=== PATIENT | female | born 1990 | race Caucasian/White ===

== ENCOUNTER 2018-02-20 08:21 | Emergency (ER) | payer SELFPAY ==
[2018-02-20 08:39] VITALS: BP 123/75; PULSE 94; TEMP 98.5; BMI 35.4
--- NOTE | 2018-02-20 08:42 | PDOC ---
History of Present Illness - General Chief Complaint: Edema Stated Complaint: SWELLING AND DRAINAGE FROM UMBILICUS Time Seen by Provider: 02/20/18 08:27 - History of Present Illness Initial Comments: 02/20/18 08:43 Chief complaint: Infection belly button History of present illness: Patient noted pain and swelling in the area of her umbilicus approximately one week ago. This persisted until yesterday, when a "lump" that he developed ruptured and a large amount of pus was released. The pain was resolved and the drainage has continued. Review of systems: No fever/chills, pain in other areas of the abdomen, chest pain, shortness of breath, nausea, vomiting, diarrhea, visual or focal neurologic symptoms, unsteadiness of gait, urinary tract symptoms, vaginal bleeding or discharge Past medical history: Patient denies diabetes or other chronic illnesses. Healthy. Taking no medications Social/family history reviewed and noncontributory other than moderate obesity Physical exam: Alert and oriented well-developed well-nourished no acute distress cheerful and cooperative Afebrile, vital signs normal HEENT clear Neck supple without bruit mass or nodes Chest clear CV regular without murmur rub or gallop Abdomen nondistended. Bowel sounds normal. Soft without mass tenderness organomegaly. No CVAT. There is minimal erythema, less than 1 cm, in the umbilical area, mostly superior. There is a small amount of watery but purulent appearing fluid draining from a and opening superiorly. There is no significant surrounding swelling, induration, or tenderness. There is no foreign body or other material within. Impression: Small abscess, superficial, open and draining, no systemic toxicity Plan: Continue local wound care, warm compresses, begin antibiotics, close follow-up if symptoms worsen or infection stops draining and continues to spread. Past History - Past Medical History Allergies/Adverse Reactions: Allergies Allergy/AdvReac Type Severity Reaction Status Date / Time No Known Allergies Allergy Verified 02/20/18 08:25 Home Medications: Ambulatory Orders Sulfamethoxazole/Trimethoprim [Bactrim Ds -] 1 tab PO BID #14 tablet 02/20/18 Cardiac Disorders: Yes (INFANCY) COPD: No - Surgical History Abdominal Surgery: Yes (appy) Appendectomy: Yes - Immunization History Td Vaccination: Yes TDAP Vaccination: No Immunization Up to Date: Yes - Suicide/Smoking/Psychosocial Hx Smoking Status: No Smoking History: Former smoker Have you smoked in the past 12 months: No Number of Cigarettes Smoked Daily: 0 If you are a former smoker, when did you quit?: 5 YEARS Information on smoking cessation initiated: No Hx Alcohol Use: Yes (SOCIAL) Drug/Substance Use Hx: No Substance Use Type: Alcohol *Physical Exam - Vital Signs Last Vital Signs Temp Pulse Resp BP Pulse Ox 98.5 F 94 H 16 123/75 100 02/20/18 08:24 02/20/18 08:24 02/20/18 08:24 02/20/18 08:24 02/20/18 08:24 *DC/Admit/Observation/Transfer Diagnosis at time of Disposition: Omphalitis in adult - Discharge Dispostion Disposition: HOME Condition at time of disposition: Stable Decision to Admit order: No - Prescriptions Prescriptions: Sulfamethoxazole/Trimethoprim [Bactrim Ds -] 1 tab PO BID #14 tablet - Referrals - Patient Instructions Printed Discharge Instructions: DI for Wound Infection Additional Instructions: Continue warm compresses. Local skin hygiene as directed. Antibiotics. If no improvement or if the symptoms persist after antibiotic therapy, surgical consultation may be necessary. If there is fever, increased pain, or spread of the redness or inflammation and surrounding tissues, return to ER immediately or see primary physician. - Post Discharge Activity
== END 2018-02-20 08:52 | disposition home or self-care (01) ==
LOC: FER 08:21
DX: L08.82 Omphalitis not of newborn (principal); Z87.891 Personal history of nicotine dependence; I51.9 Heart disease, unspecified
CPT/HCPCS: 99282-25

== ENCOUNTER 2019-11-22 13:07 | Emergency (ER) | payer OTHER ==
[2019-11-22 13:23] VITALS: BP 128/73; TEMP 98.8; BMI 38.9
--- NOTE | 2019-11-22 13:33 | PDOC ---
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 Notes that it began this morning after waking up, from approximately 0500 until now. "Can't get a full breath of air". Reports that she has had previously felt similar symptoms, but never had them for so long. Initially stated that she was not feeling anxious, but later in the interview states that she is feeling worsening anxiety. Does not follow anyone for anxiety, does not take any medications. Patient declines labs or imaging, but is amenable to EKG. Denies recent travel, history of clots, chest pain, abd pain, urinary symptoms. Past History - Past Medical History Allergies/Adverse Reactions: Allergies Allergy/AdvReac Type Severity Reaction Status Date / Time No Known Allergies Allergy Verified 11/22/19 13:09 Home Medications: Ambulatory Orders NK [No Known Home Medication] 05/31/18 Cardiac Disorders: Yes (INFANCY) COPD: No Other medical history: h/o kawasaki child - Surgical History Abdominal Surgery: Yes (appy) Appendectomy: Yes - Immunization History Td Vaccination: Yes TDAP Vaccination: No Immunization Up to Date: Yes - Psycho Social/Smoking Cessation Hx Smoking Status: No Smoking History: Never smoked Have you smoked in the past 12 months: No Number of Cigarettes Smoked Daily: 0 If you are a former smoker, when did you quit?: 5 YEARS Information on smoking cessation initiated: No Hx Alcohol Use: No Drug/Substance Use Hx: No Substance Use Type: Alcohol Review of Systems - Review of Systems Comments:: 11/22/19 16:42 GENERAL/CONSTITUTIONAL: denies fever, chills, diaphoresis, generalized weakness , malaise, loss of appetite, weight change HEAD, EYES, EARS, NOSE AND THROAT: denies rhinorrhea, nasal congestion, throat pain, throat swelling, difficulty swallowing, mouth swelling, ear pain, eye pain , visual changes NEUROLOGIC: denies headache, focal weakness or paresthesias, dizziness, unsteady gait, seizure, mental status changes, bladder or bowel incontinence CARDIOVASCULAR: denies chest pain, syncope, palpitations, irregular heart rate, lightheadedness, peripheral edema RESPIRATORY: endorses shortness of breath. Denies cough, dyspnea with exertion, orthopnea, wheezing, stridor, hemoptysis GASTROINTESTINAL: denies abdominal pain, abdominal distension, nausea, vomiting , diarrhea, constipation, melena, hematochezia GENITOURINARY: denies dysuria, frequency, urgency, hesitancy, hematuria, flank pain, genital pain MUSCULOSKELETAL: denies myalgia, arthralgia, joint swelling, back pain, neck pain SKIN: denies rash, itching, pallor HEMATOLOGIC/IMMUNOLOGIC: denies easy bleeding, easy bruising, lymphadenopathy, frequent infections ENDOCRINE: denies unexplained weight gain, unexplained weight loss, heat intolerance, cold intolerance PSYCHIATRIC: endorses anxiety. Denies depression, suicidal or homicidal ideation , hallucinations *Physical Exam - Vital Signs Last Vital Signs Temp Pulse Resp BP Pulse Ox 98.8 F 119 H 20 128/73 99 11/22/19 13:07 11/22/19 13:07 11/22/19 13:07 11/22/19 13:07 11/22/19 13:07 - Physical Exam 11/22/19 16:43 GENERAL: Awake, alert, and fully oriented, in no acute distress. HEAD: Normal with no signs of trauma. EYES: Pupils equal, round and reactive to light, extraocular movements intact, sclera anicteric, conjunctiva clear. No lid lag. EARS, NOSE, THROAT: Ears normal, nares patent, oropharynx clear without exudates. Dry mucous membranes. NECK: Normal range of motion, supple without lymphadenopathy or JVD LUNGS: Breath sounds equal, clear to auscultation bilaterally. No wheezes, and no crackles. No accessory muscle use. HEART: Tachycardic, regular rhythm, normal S1 and S2 without murmur, rub or gallop. ABDOMEN: Soft, nontender, non-distended, normoactive bowel sounds, negative guarding, negative rebound MUSCULOSKELETAL: Normal range of motion at all joints. No bony deformities or tenderness. No CVA tenderness. UPPER EXTREMITIES: 2+ pulses, warm, well-perfused. No cyanosis. No clubbing. Cap refill <2 seconds. No peripheral edema. LOWER EXTREMITIES: 2+ pulses, warm, well-perfused. No calf tenderness. No peripheral edema. NEUROLOGICAL: Cranial nerves II-XII intact. Normal speech. Normal gait. PSYCHIATRIC: Cooperative. Good eye contact. Appropriate mood and affect. SKIN: Warm, dry, normal turgor, no rashes or lesions noted. ED Treatment Course - LABORATORY CBC & Chemistry Diagram: 11/22/19 14:01 11/22/19 14:01 Medical Decision Making - Medical Decision Making 11/22/19 13:56 Low suspicion for PE considering no recent travel, history of clots, or leg swelling. Low suspicion for ACS considering age and lack of risk factors. Possibly anemic, but patient refuses labwork. - urine - EKG 11/22/19 14:25 EKG with sinus tachycardia, RSR' in V1 and AVF, incomplete RBBB, appears unchanged from prior in 2018. WBC 11.1, otherwise unremarkable. Urine negative. TSH wnl. 11/22/19 14:45 HR in 90s without intervention, patient feeling better. TSH wnl. Will dc for further outpatient management. Discharge - Discharge Information Problems reviewed: Yes Clinical Impression/Diagnosis: Shortness of breath Condition: Stable Disposition: HOME - Admission No - Follow up/Referral Referrals: Darline Vasques MD [Primary Care Provider] - - Patient Discharge Instructions Patient Printed Discharge Instructions: DI for Shortness of Breath Additional Instructions: You were seen with shortness of breath. Your labs did not show any concerning abnormalities, and your EKG did not show any differences from your prior EKG. It is important that you follow up with your primary care doctor within one week. Return to the ED if you develop worsening symptoms. - Post Discharge Activity Work/Back to School Note: Back to Work
--- NOTE | 2019-11-22 13:39 | PDOC ---
Attending Attestation - Resident Resident Name: Kumar Parra - ED Attending Attestation I have performed the following: I have examined & evaluated the patient, The case was reviewed & discussed with the resident, I agree w/resident's findings & plan, Exceptions are as noted - HPI HPI: 11/22/19 13:37 29 yo F with h/o anxiety here c/o racing heart beat, sob. pt states was feeling anxious at the time. States she woke up with the symptoms but has been feeling more anxious and short of breath all day long. Denies any chest pain denies any fevers chills no coughing. States that she has had similar episodes but never been formally diagnosed with generalized anxiety disorder panic disorder is planning to follow-up with her PCP states she has been under a lot of stress at her job which may have precipitated thingssimilar to prior panic attacks. no f/c no cough. no leg swelling. no chest pain. no other complaints. 11/22/19 13:50 - Physicial Exam PE: 11/22/19 13:38 awake alert lungs clear bilat heart rrr no mrg abd soft ntnd ext wwp. Patient is speaking rapidly appears to be very anxious but is cooperative with exam 11/22/19 13:51 - Medical Decision Making 11/22/19 13:38 29 yo F with sobabilio related to anxiety reaction differential includes infection anemia, electrolyte abnoramlity pregnayc. pt refusing to have blood work drawn, states she only wants an EKG to make herself feel less anxious.
[2019-11-22 14:15] LABS: BASO % 2.4 % (0-2.0); EOS % 0.4 % (0-4.5); HEMATOCRIT 40.1 % (32.4-45.2); HEMOGLOBIN 13.5 GM/dl (10.7-15.3); LYMPH % 22.7 % (8-40); MCH 29.5 pg (25.7-33.7); MCHC 33.7 g/dl (32.0-36.0); MEAN CELL VOLUME 87.3 fl (80-96); MEAN PLT VOLUME 8.6 fl (7.5-11.1); MONO % 8.3 % (3.8-10.2); NEUT % 66.2 % (42.8-82.8); PLATELET COUNT 463 K/MM3 (134-434); RBC 4.59 M/mm3 (3.60-5.2); RDW 12.7 % (11.6-15.6); WHITE BLOOD COUNT 11.1 K/mm3 (4.0-10.8)
[2019-11-22 14:23] LABS: ALBUMIN 3.9 g/dl (3.4-5.0); BILIRUBIN,TOTAL 0.5 mg/dl (0.2-1); CALCIUM 9.4 mg/dl (8.5-10); CREATININE 0.6 mg/dl (0.55-1.3); POTASSIUM 3.6 mmol/L (3.5-5.1); TOT PROT 7.9 g/dl (6.4-8.2)
[2019-11-22 14:38] VITALS: PULSE 98
--- NOTE | 2019-11-23 11:30 | EKG ---
Test Reason : Blood Pressure : / mmHG Vent. Rate : 106 BPM Atrial Rate : 106 BPM P-R Int : 172 ms QRS Dur : 090 ms QT Int : 350 ms P-R-T Axes : 046 010 027 degrees QTc Int : 464 ms SINUS TACHYCARDIA INCOMPLETE RBBB MINIMAL VOLTAGE CRITERIA FOR LVH, MAY BE NORMAL VARIANT ABNORMAL ECG Confirmed by MD NANO, LUCIEN ([id number]) on 11/23/2019 11:30:06 AM Referred By: THAIS MCNEIL Confirmed By:LUCIEN MCGILL MD
== END 2019-11-22 14:50 | disposition home or self-care (01) ==
LOC: FER 13:07
DX: R06.02 Shortness of breath (principal); M30.3 Mucocutaneous lymph node syndrome [Kawasaki]; K21.9 Gastro-esophageal reflux disease without esophagitis; F41.9 Anxiety disorder, unspecified; Z87.891 Personal history of nicotine dependence
CPT/HCPCS: 36415; 80053; 84443; 84703; 85025; 93005; 99284-25

== ENCOUNTER 2021-07-19 15:07 | Emergency (ER) | payer OTHER ==
[2021-07-19 15:23] VITALS: BP 129/89; PULSE 100; TEMP 98.9; BMI 38.9
[2021-07-19] MEDS ORDERED: IBUPROFEN 400 MG TABLET (FP) PO ONE ×2 (15:52→15:56)
== END 2021-07-19 16:21 | disposition home or self-care (01) ==
LOC: FER 15:07
DX: J02.8 Acute pharyngitis due to other specified organisms (principal)
CPT/HCPCS: 87804; 87880; 99283-25; C9803; U0003; U0005

== ENCOUNTER 2024-12-19 06:59 | Observation (INO) | payer OTHER ==
[2024-12-19] MEDS ORDERED: ACETAMINOPHEN INJECTION 100 ML ONE (07:51)
[2024-12-19] MEDS ORDERED: ONDANSETRON 4 MG/2 ML VIAL ONE (07:51)
[2024-12-19] MEDS: ACETAMINOPHEN 1000 MG/100 ML BAG IVPB ONE (08:13)
[2024-12-19] MEDS: SODIUM CHLORIDE 1,000 ML IV ONE (08:13)
[2024-12-19] MEDS: ONDANSETRON 4 MG/2 ML VIAL IVPB ONE (08:14)
[2024-12-19 08:43] LABS: EPITHELIAL CELLS 0-5 /hpf
[2024-12-19 08:44] LABS: CALCIUM OXALATE CRYSTALS FEW /hpf (NONE SEEN)
[2024-12-19 09:05] LABS: ALBUMIN 4.4 g/dl (3.4-5.0); BILIRUBIN,TOTAL 0.5 mg/dl (0.2-1); CALCIUM 9.7 mg/dl (8.5-10.1); CREATININE 0.6 mg/dl (0.6-1.3); POTASSIUM 4.2 mmol/L (3.5-5.1); TOT PROT 7.6 g/dl (6.4-8.2)
[2024-12-19 09:16] LABS: VENOUS BASE EXCESS -8.2 mmol/L (-2-2); VENOUS O2 SATURATION 51.2 % (70-80); VENOUS PCO2 35.6 mmHg (38-52); VENOUS PH 7.302 (7.310-7.410)
[2024-12-19] MEDS: morphine CARPU-JECT 2 MG/1 ML DISP.SYRIN IVPUSH ONE (09:25)
[2024-12-19] MEDS ORDERED: METOCLOPRAMIDE HCL INJECTION 10 MG/2 ML VIAL ONE (11:28)
[2024-12-19] MEDS: METOCLOPRAMIDE HCL INJECTION 10 MG/2 ML VIAL IVPUSH ONE (11:34)
[2024-12-19] MEDS: DEXTROSE 5%-NORMAL SALINE 500 ML IV ONE (11:34)
[2024-12-19] MEDS ORDERED: cefTRIAXone SODIUM 1 GM VIAL ONE (13:21)
[2024-12-19] MEDS: CEFTRIAXONE 1 GM in DEXTROSE 5%-WATER - 50 ML IVPB ONE (13:29)
[2024-12-19] MEDS: DEXTROSE 5%-NORMAL SALINE 1,000 ML IV SCH (16:02)
[2024-12-19] MEDS: ACETAMINOPHEN 1000 MG/100 ML BAG IVPB PRN (17:29)
[2024-12-19 18:05] VITALS: BMI 36.3
[2024-12-20] MEDS: METOCLOPRAMIDE HCL INJECTION 10 MG/2 ML VIAL IVPUSH PRN ×2 (08:08→21:35)
[2024-12-20 08:43] LABS: ALBUMIN 3.4 g/dl (3.4-5.0); BILIRUBIN,TOTAL 0.5 mg/dl (0.2-1); CALCIUM 8.8 mg/dl (8.5-10.1); CREATININE 0.5 mg/dl (0.6-1.3); POTASSIUM 3.6 mmol/L (3.5-5.1)
[2024-12-20] MEDS: FAMOTIDINE 20 MG/50 ML IVPB 20 MG/50 ML MG IVPB SCH ×2 (09:49→22:06)
[2024-12-20] MEDS: LORazepam 2 MG/ML SDV VIAL IVPUSH PRN (09:49)
[2024-12-20] MEDS: CEFTRIAXONE 1 G/50 ML PREMIX 50 ML IVPB SCH (09:49)
[2024-12-20 11:11] LABS: ABSOLUTE IMMATURE GRANULOCYTES 0.02 x10^3/uL (0.0-0.031); BASOPHILS # 0.05 x10^3/uL (0.01-0.08); EOSINOPHIL % 0.7 % (0.7-5.8); EOSINOPHILS # 0.04 x10^3/uL (0.04-0.36); HEMATOCRIT 38.8 % (34.1-44.9); HEMOGLOBIN 12.9 g/dL (11.2-15.7); MCHC 33.2 g/dl (32.2-35.5); MEAN CELL VOLUME 85.8 fl (79.4-94.8); MEAN PLT VOLUME 10.8 fl (9.4-12.3); MONOCYTE # 0.68 x10^3/uL (0.24-0.86); PLATELET COUNT # 360 x10^3/uL (182-369); RDW 15.3 % (12.1-16.8)
[2024-12-20] MEDS ORDERED: oxyCODONE HCL 5 MG TABLET PO PRN ×3 (14:17→19:53)
[2024-12-20] MEDS ORDERED: LACTATED RINGERS SOLUTION 1,000 ML IV SCH (14:30)
[2024-12-20] MEDS ORDERED: BUPIVACAINE HCL/PF 2.5 MG/ML - 30 ML VIAL IJ ONE (14:54)
[2024-12-20] MEDS ORDERED: SUCCINYLCHOLINE CHLORIDE 200 MG/10 ML SYRINGE ONE (15:19)
[2024-12-20] MEDS ORDERED: PROPOFOL 20 ML ONE ×2 (15:20→17:56)
[2024-12-20] MEDS ORDERED: MIDAZOLAM HCL 2 MG/2 ML SINGLE DOSE VIAL ONE (15:21)
[2024-12-20] MEDS ORDERED: ACETAMINOPHEN INJECTION 100 ML ONE (15:47)
[2024-12-20] MEDS ORDERED: HYDROmorphone HCL/PF 1 MG/ML VIAL ONE (17:31)
[2024-12-20] MEDS ORDERED: HEPARIN NA (PORCINE) 5,000 UNITS/ML 1ML VIAL ONE (17:33)
[2024-12-20] MEDS ORDERED: SUGAMMADEX SODIUM 200 MG/2 ML VIAL ONE (17:57)
[2024-12-20] MEDS ORDERED: FENTANYL CITRATE/PF 50 MCG/ML VIAL ONE (18:18)
[2024-12-20] MEDS ORDERED: PROMETHAZINE HCL 25 MG/1 ML VIAL IVPB PRN (18:45)
[2024-12-20] MEDS: LACTATED RINGERS SOLUTION 1,000 ML IV SCH (19:53)
[2024-12-20] MEDS ORDERED: DEXTROSE 5%-NORMAL SALINE 1,000 ML IV SCH (19:53)
[2024-12-20] MEDS: oxyCODONE HCL 5 MG TABLET PO PRN (22:06)
[2024-12-21] MEDS ORDERED: oxyCODONE HCL 5 MG TABLET PO PRN ×2 (07:30)
[2024-12-21 08:36] LABS: ALBUMIN 3.7 g/dl (3.4-5.0); BILIRUBIN,TOTAL 0.5 mg/dl (0.2-1); CALCIUM 9.2 mg/dl (8.5-10.1); CREATININE 0.5 mg/dl (0.6-1.3); MAGNESIUM 1.7 mg/dL (1.8-2.4); PHOSPHOROUS 3.5 (2.5-4.9); POTASSIUM 3.5 mmol/L (3.5-5.1); TOT PROT 6.5 g/dl (6.4-8.2)
[2024-12-21] MEDS: ACETAMINOPHEN 1000 MG/100 ML BAG IVPB SCH (08:39)
[2024-12-21] MEDS: KETOROLAC TROMETHAMINE 30 MG/1 ML VIAL IVPUSH PRN (09:25)
[2024-12-21] MEDS: CEFTRIAXONE 1 G/50 ML PREMIX 50 ML IVPB SCH (09:25)
[2024-12-21] MEDS: MAGNESIUM OXIDE 400 MG TABLET (FP) PO ONE (09:29)
[2024-12-21 10:04] VITALS: RESP 18
[2024-12-21 14:55] VITALS: BP 108/94; PULSE 85; TEMP 98.8
== END 2024-12-21 15:23 | disposition home or self-care (01) ==
LOC: FER 06:59 → FM/S 15:15
PROVIDERS: ATTEND Internal Medicine
PROC: 0FT44ZZ Resection of Gallbladder, Percutaneous Endoscopic Approach (ICD-10-PCS; principal; 2024-12-19)
PROC: 3E033NZ Introduction of Analgesics, Hypnotics, Sedatives into Peripheral Vein, Percutaneous Approach (ICD-10-PCS; 2024-12-19)
PROC: 3E03329 Introduction of Other Anti-infective into Peripheral Vein, Percutaneous Approach (ICD-10-PCS; 2024-12-19)
PROC: 3E0337Z Introduction of Electrolytic and Water Balance Substance into Peripheral Vein, Percutaneous Approach (ICD-10-PCS; 2024-12-19)
PROC: 3E033GC Introduction of Other Therapeutic Substance into Peripheral Vein, Percutaneous Approach (ICD-10-PCS; 2024-12-19)
PROC: 3E0333Z Introduction of Anti-inflammatory into Peripheral Vein, Percutaneous Approach (ICD-10-PCS; 2024-12-19)
PROC: 3E033NZ Introduction of Analgesics, Hypnotics, Sedatives into Peripheral Vein, Percutaneous Approach (ICD-10-PCS; 2024-12-19)
DX: K81.0 Acute cholecystitis (principal); E87.20 Acidosis, unspecified; E66.9 Obesity, unspecified; E86.0 Dehydration; Z68.39 Body mass index [BMI] 39.0-39.9, adult; Z98.84 Bariatric surgery status; Z87.891 Personal history of nicotine dependence
CPT/HCPCS: 36415; 74177-TC; 80053; 81003; 81015; 82803; 83605; 83690; 83735; 84100; 84703; 85025; 85027; 87086; 88304-TC; 94760; 99285-25; G0378; J0131; J1644; Q9967